=== PATIENT | male | born 1960 | race Hispanic/Latino ===

== ENCOUNTER 2017-10-30 07:54 | Observation (INO) | payer OTHER ==
[~2017-10-30] VITALS: Ht 165.1 cm; Wt 82.8 kg
[~2017-10-30 07:54] MED LIST: ALPRAZOLAM0.5 M4 PO; AMLODIPINE BESY10 M1 PO; LISINOPRIL40 M1 PO; VIAGRA100 M1 PO
[2017-10-30] MEDS ORDERED: INDOMETHACIN25 M1 PO (08:55)
[2017-10-30] MEDS ORDERED: OMEPRAZOLE40 M1 PO (08:55)
[2017-10-30] MEDS ORDERED: ASPIRIN EC81 M1 PO (08:55)
[2017-10-30] MEDS ORDERED: DILAUDID2 M1 PO (08:55)
[2017-10-30] MEDS ORDERED: COLACE100 M1 PO (08:55)
[2017-10-30] MEDS ORDERED: MIRALAX17 G1 PO (08:55)
--- NOTE | 2017-10-30 08:57 | Patient Discharge Instructions ---
Discharge Instructions General Discharge Information You were seen/treated for: Left hip osteoarthritis You had these procedures: Left total hip arthroplasty Watch for these problems: Fever over 100.4 Redness and swelling around wound Drainage from wound Numbness and tingling in left lower extremity Chest pain or shortness of breath No bath, but you may shower: Yes Other wound care: Daily dry dressing change Keep incision clean and dry Diet Continue normal diet: Yes Activity Activity Self Limited: Yes Activity Limited to: Weight bear as tolerated (with rolling walker) Acute Coronary Syndrome Inclusion Criteria At DC or during hospital stay patient has or had the following: ACS DIAGNOSIS No Discharge Core Measures Meds if any: Prescribed or Continued at Discharge Meds if any: NOT Prescribed or Continued at Discharge Congestive Heart Failure Inclusion Criteria At DC or during hospital stay patient has or had the following: CHF DIAGNOSIS No Discharge Core Measures Meds if any: Prescribed or Continued at Discharge Meds if any: NOT Prescribed or Continued at Discharge Cerebrovascular accident Inclusion Criteria At DC or during hospital stay patient has or had the following: CVA/TIA Diagnosis No Discharge Core Measures Meds if any: Prescribed or Continued at Discharge Meds if any: NOT Prescribed or Continued at Discharge Venous thromboembolism Inclusion Criteria VTE Diagnosis No VTE Type NONE VTE Confirmed by (Test) NONE Discharge Core Measures - Per Current guidelines, there needs to be overlap - treatment for the first 5 days of Warfarin therapy. - If discharged on Warfarin prior to 5 days of - overlap therapy, the patient will need to be - assessed for post discharge needs including - *Post discharge parental anticoagulation - *Warfarin and/or parental anticoagulation education - *Follow up date to check INR post discharge At least 5 days overlap therapy as Inpatient No Meds if any: Prescribed or Continued at Discharge Note: Overlap Therapy is Warfarin and Anticoagulant Meds if any: NOT Prescribed or Continued at Discharge
--- NOTE | 2017-10-30 09:10 | Admission Core Measures ---
Acute Coronary Syndrome (CM) ACS Core Measures Acute Coronary Syndrome Diagnosis No Congestive Heart Failure (NEW) CHF Core Measures Congestive Heart Failure Diagnosis No Cerebrovascular Accident CVA Core Measures CVA/TIA Diagnosis No Venous Thromboembolism VTE Core Tanner (View Protocol) VTE Risk Factors Surgery No Mechanical VTE Prophylaxis d/t N/A MechProphylax Ordered No VTE Pharm Prophylaxis d/t NA PharmProphylax ordered Problem List As ranked by this Provider includes Assessment & Plan 1. Unilateral primary osteoarthritis, left hip HOME MEDS Home Med List Alprazolam 0.5 MG TABLET 1 TAB PO PRN ANXIETY (Reported) Amlodipine Besylate 10 MG TABLET 1 TAB PO DAILY BP (Reported) Aspirin (Ecotrin*) 81 MG TABLET.DR 1 TAB PO BID DVT PPX Docusate Sodium (Colace) 100 MG CAPSULE 1 CAP PO BID STOOL SOFTENER Hydromorphone HCl (Dilaudid) 2 MG TABLET 1-2 TAB PO Q4-6 PRN PRN PAIN Indomethacin 25 MG CAPSULE 1 CAP PO TID HO PPX Lisinopril 40 MG TABLET 1 TAB PO DAILY BP (Reported) Omeprazole 40 MG CAPSULE.DR 1 CAP PO DAILY GI PPX Polyethylene Glycol 3350 (Miralax) 17 GRAM POWD.PACK 1 PAC PO DAILY CONSTIPATION Sildenafil Citrate (Viagra) 100 MG TABLET 1 TAB PO PRN ED (Reported)
--- NOTE | 2017-10-30 09:11 | Surg Short-stay <48hrs Dis Sum ---
Visit Information Visit Dates Admission Date: 10/30/17 Discharge Date: 10/30/17 Surgical Short Stay DC Summary Admission Diagnosis: Left hip osteoarthritis Final Diagnosis: Same Procedure(s): Left total hip arthroplasty Summary/Significant Findings: Patient tolerated procedure well. Postoperatively he was tolerating regular diet, pain was well controlled, he is voiding spontaneously, patient was ambulating with physical therapy using a rolling walker and was cleared for discharge. Condition at Discharge: Good Discharge Disposition: home health services Discharge instructions provided to patient/family: Yes Post discharge follow-up plan: Patient was told to follow-up with Dr. Ruffin in 6 weeks. He was given instructions to call sooner with any questions or concerns.
--- NOTE | 2017-10-30 10:40 | RADIOLOGY REPORT ---
EXAMINATION: XR HIP, LEFT CLINICAL INFORMATION: Left total hip replacement. COMPARISON: None TECHNIQUE: AP and crosstable lateral views of the left hip. FINDINGS: The left total hip arthroplasty appears well-seated in near-anatomic alignment. There is air in the joint and soft tissues. IMPRESSION: Intact appearing left total hip arthroplasty. Expected postoperative changes.
--- NOTE | 2017-10-30 11:27 | PN- Orthopedic ---
See Addendum Subjective Subjective: Postop check Patient recovering well in PACU, still has some numbness in lower extremities. Motor function just barely returning. Denies pain. Denies nausea. Tolerating clear liquids. Denies chest pain, shortness of breath, headache, or dizziness Objective Vital Signs and I&Os Intake & Output 10/30 1600 10/30 0800 10/30 0000 10/29 1600 10/29 0800 10/29 0000 Intake Total Output Total Balance Patient 181 lb Weight Vital signs stable, afebrile Physical Exam: General- NAD Resperations- clear bialaterlly Cardiac-regular rate and rhythm Abdomen-soft nontender with positive bowel sounds Extremities-dressing is clean and dry, left thigh is soft with no erythema, minimal tenderness around incision. Calves are soft bilaterally and non- tenderness. 2+ dorsalis pedis pulse bilaterally Current Medications: Current Medications Sig/Kathi Start time Last Medication Dose Route Stop Time Status Admin Acetaminophen 0 .STK-MED ONE 10/31 723 DC PO Acetaminophen 975 MG ONCE 10/30 0000 AC PO 10/30 2359 Cefazolin Sodium 2,000 MG ONCE 10/30 0000 NR IV 10/30 2359 Midazolam HCl 0 .STK-MED ONE 10/30 713 DC .ROUTE Midazolam HCl 0 .STK-MED ONE 10/30 712 DC .ROUTE Oxycodone HCl 0 .STK-MED ONE 10/31 723 DC PO Oxycodone HCl 10 MG ONCE 10/30 0000 AC PO 10/30 2359 Tranexamic Acid 0 .STK-MED ONE 10/30 0714 DC IV Assessment/Plan Assessment/Plan 57-year-old male with a history of hypertension and social EtOH use now here status post left total hip arthroplasty postop day 0. Stable, recovering well in PACU pain management PT- WBAT with rolling walker DVT PPX- ASA BID alps and teds DC IVF in am FU AM labs Regular diet Regular home medications Encourage IS DC planning Dressing change Post-op day2 Core Measures Venous Thromboembolism VTE Risk Factors Surgery No Mechanical VTE Prophylaxis d/t N/A MechProphylax Ordered No VTE Pharm Prophylaxis d/t NA PharmProphylax ordered
[2017-10-30 12:00] VITALS: BP 96/54
[2017-10-30] MEDS ORDERED: MS CONTIN15 M3 PO (15:39)
--- NOTE | 2017-10-30 15:39 | Operative Report ---
Operative/Inv Procedure Report Surgery Date: 10/30/17 Name of Procedure: Left total hip replacement Pre-Operative Diagnosis: Primary left hip DJD Post-Operative Diagnosis: Same Estimated Blood Loss: 250 Surgeon/Emergency Dispatch Operator: Peter Ruffin MD Anesthesia: block Operative/Procedure Note Note: Description of Procedure: The patient was taken to the operating room and positively identified. After induction of spinal anesthesia and administration of appropriate pre-operative antibiotics, the patient was positioned supine on the operating room table and all bony prominences were well padded. After performing a surgical timeout, the left lower extremity was prepped and draped in the usual sterile fashion. A direct anterior approach was made to the left hip. The incision was carried sharply through superficial soft tissues to the level of the fascia. Meticulous hemostasis was maintained with Bovie electocautery. The fascia over the tensor fascia gris muscle was opened sharply and the interval between the TFL and the sartorius was entered bluntly taking care to stay lateral to the lateral femoral cutaneous nerve. Retractors were placed around the femoral neck and the pericapsular fat was identified. The ascending branches of the lateral femoral circumflex vessels were identified and carefully coagulated. The pericapsular fat and anterior capsule were then resected. A napkin ring osteotomy was performed and the femoral head was removed without difficulty. Attention was then turned to the acetabulum. After appropriate placement of retractors, the acetabulum was exposed. Soft tissue was cleaned from the acetabular margin and notch. Overhanging osteophytes were removed and the teardrop was exposed. The acetabulum was then sequentially reamed to accept a 56 mm Gwyn Tritanium hemispherical solid shell. This was impacted into place in the appropriate position and fitted with a 36 mm Trident X3 zero degree polyethylene insert. Attention was then turned to the femur. After performing the appropriate ligament releases, the proximal femur was exposed. It was then sequentially broached to accept a size 7 Gwyn secure fit advanced 132 neck angle stem. This was trialed for leg length and stability. The trial component was removed and the final component was impacted into place. The trunnion was carefully cleaned and fit with a 36 mm, +5 Biolox delta ceramic femoral head. The hip was reduced and put through a full range of motion and found to be stable. The articular space was then irrigated with sterile saline. The periarticular soft tissues were infilitrated with Marcaine. The fascial layer was closed with interrupted #1 vicryl suture and the skin was re-approximated with interrupted 2 -0 vicryl. The skin was closed with a running 3-0 V-Lock suture. Steri-strips and a sterile dressing were applied. The patient was awakened and taken to the recovery room in satisfactory condition.
[2017-10-30 16:00] VITALS: BP 147/99
[2017-10-30 18:00] VITALS: BP 126/89
== END 2017-10-30 20:28 | disposition home health service (06) ==
LOC: STS 07:54 → PACUH 08:20 → STS 08:20 → ENRESERV 10:48 → ENTRNSPT 11:27 → EDTRNSPT 11:28 → EDTRNSPTSTS 11:28 → 2NB 11:37 → CMPTRNSPT 11:47 → ENTRNSPT 20:15 → EDTRNSPTSTS 20:21 → 2NB 20:28 → CMPTRNSPT 20:53
DX: M16.12 Unilateral primary osteoarthritis, left hip (principal); I10 Essential (primary) hypertension
CPT/HCPCS: 1255; 73502-LT; 96374; 96375; 97116-GO; 97116-GP; 97161-GP; G0378; J0131; J0690; J0735; J3490; J7042